=== PATIENT | male | born 2000 | race Hispanic/Latino ===

== ENCOUNTER 2021-09-14 10:56 | Emergency (ER) | payer OTHER ==
[~2021-09-14] VITALS: Ht 165.1 cm; Wt 99.8 kg
[2021-09-14] MEDS ORDERED: IBUPROFEN 600 MG TAB PO STA (11:44)
[2021-09-14] MEDS ORDERED: IBUPROFEN 600 MG TAB ONE (12:25)
== END 2021-09-14 13:40 | disposition home or self-care (01) ==
LOC: FSED 11:34
DX: S00.83XA Contusion of other part of head, initial encounter (principal); S20.211A Contusion of right front wall of thorax, initial encounter; S40.812A Abrasion of left upper arm, initial encounter; S40.811A Abrasion of right upper arm, initial encounter; Y04.8XXA Assault by other bodily force, initial encounter; Y92.89 Other specified places as the place of occurrence of the external cause
CPT/HCPCS: 70450; 71101; 99283